=== PATIENT | male | born 1985 | race Caucasian/White ===

== ENCOUNTER 2019-11-21 17:52 | Emergency (ER) | payer OTHER, SELFPAY ==
[2019-11-21 18:03] VITALS: BP 144/94; PULSE 128; RESP 16; TEMP 36.7; O2SAT 94
[2019-11-21 18:08] LABS: Bilirubin Negative (Negative); Blood Large (Negative); Clarity Cloudy (Clear); Glucose Negative (Negative); Ketones Negative (Negative); Leukocyte Esterase Large (Negative); Nitrite Negative (Negative); Specific Gravity 1.025 (1.005-1.025); Urobilinogen 1 EU/dL (Up TO 0.2); pH 6.5 (5-8)
--- NOTE | 2019-11-21 18:15 | DI.CT_ITS ---
EXAM: CT ABDOMEN PELVIS WO CLINICAL HISTORY: Pain, hematuria. TECHNIQUE: Imaging Protocol: Axial computed tomography images with coronal and sagittal reformatted images were created and reviewed. COMPARISON: No exams were available for comparison FINDINGS: ABDOMEN: Lung Bases: There is a 2 mm noncalcified pulmonary nodule in the lateral aspect of the right lower lo be. Liver: Normal density. No measurable mass. Gallbladder and biliary tract: No radiodense calculus or dilation. Pancreas: Normal density, no abnormal calcifications or inflammatory process. Spleen: Normal. Kidneys: Normal size, contour and axis. No radiodense stones or obstructive uropathy. No masses seen. Adrenal glands: No masses seen. Lymph nodes: Within normal limits. Abdominal Aorta: Abdominal portion non-dilated. PELVIS: Bladder: There is apparent mild thickening of the wall of the urinary bladder. This may be due to un derdistention, inflammatory or infectious process cannot be excluded. Please correlate clinically. Bowel: No obstruction or bowel wall thickening. The appendix is normal in size without evidence of ad jacent mesenteric fat stranding or adjacent fluid collection. Peritoneal cavity: No ascites, collection or mesenteric inflammatory response. Reproductive organs: Within normal limits. Bones: Within normal limits. IMPRESSION: 1. No evidence of nephrolithiasis or obstructive uropathy. 2. Question of urinary bladder wall thickening. This may be due to underdistention. Inflammatory or infectious process cannot be excluded. Please correlate clinically. 3. 2 mm noncalcified pulmonary nodule in the right lower lobe. Follow-up as clinically appropriate. Please correlate with patient's past medical history. DATA REPOSITORY: All CT scans at this facility are submitted to the National Radiology Data Registry (NRDR) Dose Index Registry (DIR) with the [employer] ([employer]). RADIATION OPTIMIZATION: All CT scans at this facility use at least one of these dose optimization te chniques: automated exposure control; mA and/or kV adjustment per patient size (includes targeted exa ms where dose is matched to clinical indication); or iterative reconstruction.
[2019-11-21 18:18] LABS: RBC >50 HPF (0-2)
[2019-11-21 18:19] LABS: C & S Indicated? Yes
[2019-11-21 18:29] LABS: Abs Immature Grans 0.04 k/cumm (0.0-0.09); Absolute Basophil Count 0.03 k/cumm (0.0-0.2); Absolute Eosinophil Count 0.08 k/cumm (0.0-0.7); Absolute Lymphocyte Count 2.24 k/cumm (1.2-3.4); Absolute Monocyte Count 1.28 k/cumm (0.11-0.7); Absolute Neutrophil Count 13.01 k/cumm (1.2-6.7); Basophils % 0.2; Eosinophils % 0.5; HCT 44.6 % (40.0-50.0); HGB 15.6 g/dL (13.5-17.5); Immature Grans % 0.2 %; Lymphocytes % 13.4; Mean Corpuscular Hemoglobin 30.5 pg (27.0-33.0); Mean Corpuscular Volume 87.3 fL (80-95); Mean Platelet Volume 11.5 fL (8.0-11.0); Monocytes % 7.7; Platelet Count 202 x1000/uL (130-400); RBC 5.11 m/cumm (4.50-6.00); RBC Distribution Width 12.8 % (11.8-14.1); White Blood Cell Count 16.68 k/cumm (4.4-10.8)
[2019-11-21 18:48] LABS: ALT 37 U/L (16-63); AST 18 U/L (15-37); Albumin 4.4 g/dL (3.4-5.0); Alkaline Phosphatase 83 U/L (46-116); Anion Gap 11.1 mmol/L (3-11); BUN 11 mg/dL (7-18); Bilirubin, Total 0.8 mg/dL (0.2-1.0); CO2 26.9 mmol/L (21.0-32.0); CREATININE 1.01 mg/dL (0.70-1.30); Calcium 8.9 mg/dL (8.5-10.1); Chloride 102 mmol/L (98-107); Glucose 93 mg/dL (74-106); Potassium 3.8 mmol/L (3.5-5.1); Sodium 140 mmol/L (136-145); Total Protein 7.8 g/dL (6.4-8.2)
[2019-11-21 18:52] LABS: PTT Activated 25.5 sec (21.0-31.4); Prothrombin Time 10.4 sec (9.3-11.0)
--- NOTE | 2019-11-21 18:55 | W.ED.GENAD ---
Discharge Plan Disposition Patient Disposition: HOME Condition: Stable Discharge Details Chief Complaint: Urinary Clinical Impression: Hematuria, Cystitis Primary Care Provider: Ludin Blackwell ED Provider: Mike Roberts Home Meds and New Rx's Prescriptions: New nitrofurantoin monohyd/m-cryst [Macrobid] 100 mg capsule 100 mg PO BID Qty: 14 RF: 0 Discharge Instructions Instructions: Urinary Tract Infection in Men (ED), Hematuria (ED) Additional Instructions: Macrobid as directed. [id number] medications such as Tylenol and/or Motrin as directed for discomfort. Plenty fluids to avoid dehydration. Please watch for new or worsening symptoms and return to the ER for any concerns. I have given your name and number to the office of Dr. Cabrera, urologist. They should be reaching out to you on Saturday however if you do not hear from them I recommend contacting their office your cell for prompt outpatient reevaluation. Stand Alone Forms: Work Release Referrals: Christian Cabrera MD [ [facility] STAFF PHYSICIAN] - Medical Decision Making 33-year-old gentleman, otherwise healthy, presents with tachycardia, and pain that he describes that is inside his penis and now with hematuria today. Examination outside of his tachycardia is unremarkable. Abdomen, back, exam completely unremarkable. No lesions, erythema, discomfort, discharge. No clear indication for emergent ultrasound as suspicion for torsion, epididymitis, is so low. Will obtain routine laboratory values, give IV fluid, and obtain bladder scan. Bladder scan is less than 150, patient is able to urinate some, appears to be gross hematuria. White blood cell count of 16.68, urine protein greater than 300, urine blood large, greater than 50 red blood cells, white cells present but unable to get a number given the red cells. Will obtain CT without contrast for further evaluation of possible stone, pyelonephritis, mass, etc. Patient given 1 L of IV fluid, 1 g p.o. Tylenol, 30 IV Toradol. Patient upon reevaluation reports feeling significant improvement. Heart rate is now 92. No evidence of renal calculi or hydronephrosis. Bladder wall thickening may be due to cystitis or lack of distention Most likely diagnosis is that of hemorrhagic cystitis. He did have a Dong catheter placed on the . Patient appears well, nontoxic. We discussed his work-up, laboratory values, CTA in length. We discussed the importance of outpatient neurology follow-up, I will give him a referral to Dr. Cabrera and we will fax over his report this evening to Dr. Cabrera. Encouraged him to reach out on Saturday. Otherwise watch for new or worsening symptoms and return immediately to the ER. Medical Records Medical records reviewed: Yes I reviewed the patient's medical records. Imaging Data Radiologic Study: Imaging: CT Scan Radiologist's impression: Virtual radiology read as no evidence of renal calculi or hydronephrosis. Bladder wall thickening may be due to cystitis or lack of distention Lab Data Lab results reviewed: Yes I reviewed the patient's lab results. Lab results narrative: 11/21/19 18:00 Urine - Reflex from Ua Urine Culture - Pending Laboratory Tests Range/Units 11/21/19 11/21/19 11/21/19 18:00 18:15 18:15 WBC (4.4-10.8) k/cumm 16.68 H RBC (4.50-6.00) m/cumm 5.11 Hgb (13.5-17.5) g/dL 15.6 Hct (40.0-50.0) % 44.6 MCV (80-95) fL 87.3 MCH (27.0-33.0) pg 30.5 MCHC (32.0-36.0) g/dL 35.0 RDW (11.8-14.1) % 12.8 Plt Count (130-400) x1000/uL 202 MPV (8.0-11.0) fL 11.5 H Immature Gran % % 0.2 Neutrophils % 78.0 Lymphocytes % 13.4 Monocytes % 7.7 Eosinophils % 0.5 Basophils % 0.2 Absolute Neutrophils (1.2-6.7) k/cumm 13.01 H Absolute Lymphocytes (1.2-3.4) k/cumm 2.24 Absolute Monocytes (0.11-0.7) k/cumm 1.28 H Absolute Eosinophils (0.0-0.7) k/cumm 0.08 Absolute Basophils (0.0-0.2) k/cumm 0.03 PT (9.3-11.0) sec INR (0.9-1.1) APTT (21.0-31.4) sec Sodium (136-145) mmol/L 140 Potassium (3.5-5.1) mmol/L 3.8 Chloride (98-107) mmol/L 102 Carbon Dioxide (21.0-32.0) mmol/L 26.9 Anion Gap (3-11) mmol/L 11.1 H BUN (7-18) mg/dL 11 Creatinine (0.70-1.30) mg/dL 1.01 Estimated GFR/1.73 m2 (mL/min/1.73m2) >= 60.00 Glucose (74-106) mg/dL 93 Calcium (8.5-10.1) mg/dL 8.9 Total Bilirubin (0.2-1.0) mg/dL 0.8 AST (15-37) U/L 18 ALT (16-63) U/L 37 Alkaline Phosphatase (46-116) U/L 83 Total Protein (6.4-8.2) g/dL 7.8 Albumin (3.4-5.0) g/dL 4.4 Urine Color (Yellow) Red Urine Clarity (Clear) Cloudy Urine pH (5-8) 6.5 Ur Specific [place] (1.005-1.025) 1.025 Urine Protein (Negative) mg/dL >=300 H Urine Ketones (Negative) mg/dL Negative Urine Blood (Negative) Large H Urine Nitrite (Negative) Negative Urine Bilirubin (Negative) Negative Urine Urobilinogen (Up TO 0.2) EU/dL 1 Ur Leukocyte Esterase (Negative) Large Urine RBC (0-2) HPF >50 H Urine WBC (0-5) HPF Ur Epithelial Cells Not Applicable Urine Crystals Not Applicable Urine Bacteria Not Applicable Urine Mucus Not Applicable Ur Culture Indicated? Yes Urine Glucose (Negative) mg/dL Negative Range/Units 11/21/19 18:15 WBC (4.4-10.8) k/cumm RBC (4.50-6.00) m/cumm Hgb (13.5-17.5) g/dL Hct (40.0-50.0) % MCV (80-95) fL MCH (27.0-33.0) pg MCHC (32.0-36.0) g/dL RDW (11.8-14.1) % Plt Count (130-400) x1000/uL MPV (8.0-11.0) fL Immature Gran % % Neutrophils % Lymphocytes % Monocytes % Eosinophils % Basophils % Absolute Neutrophils (1.2-6.7) k/cumm Absolute Lymphocytes (1.2-3.4) k/cumm Absolute Monocytes (0.11-0.7) k/cumm Absolute Eosinophils (0.0-0.7) k/cumm Absolute Basophils (0.0-0.2) k/cumm PT (9.3-11.0) sec 10.4 INR (0.9-1.1) 1.0 APTT (21.0-31.4) sec 25.5 Sodium (136-145) mmol/L Potassium (3.5-5.1) mmol/L Chloride (98-107) mmol/L Carbon Dioxide (21.0-32.0) mmol/L Anion Gap (3-11) mmol/L BUN (7-18) mg/dL Creatinine (0.70-1.30) mg/dL Estimated GFR/1.73 m2 (mL/min/1.73m2) Glucose (74-106) mg/dL Calcium (8.5-10.1) mg/dL Total Bilirubin (0.2-1.0) mg/dL AST (15-37) U/L ALT (16-63) U/L Alkaline Phosphatase (46-116) U/L Total Protein (6.4-8.2) g/dL Albumin (3.4-5.0) g/dL Urine Color (Yellow) Urine Clarity (Clear) Urine pH (5-8) Ur Specific [place] (1.005-1.025) Urine Protein (Negative) mg/dL Urine Ketones (Negative) mg/dL Urine Blood (Negative) Urine Nitrite (Negative) Urine Bilirubin (Negative) Urine Urobilinogen (Up TO 0.2) EU/dL Ur Leukocyte Esterase (Negative) Urine RBC (0-2) HPF Urine WBC (0-5) HPF Ur Epithelial Cells Urine Crystals Urine Bacteria Urine Mucus Ur Culture Indicated? Urine Glucose (Negative) mg/dL HPI General Mode of arrival: ambulatory. Date/Time Provider Initiated Documentation: 11/21/19 17:58. Limitations to Documentation: no limitations. Information obtained by: patient. HPI Narrative: 33-year-old gentleman who reports mild penile pain that began yesterday, around 11:30 at night. This morning he noticed mild dysuria and subsequently noted blood in his urine. He reports that he is only able to urinate in small amounts as he is urinating clots of blood. He denies fever,, nausea, vomiting, abdominal pain, back pain. He reports that both of his testicles are aching but denies any sharp pain or worse pain either upon. Patient is , only sexually active with her, reports last intercourse several weeks ago, but did have foreplay last night that led to a normal ejaculation. Denies any STD exposure or history of STD. Of note, he had a left knee surgery last month on the , and meniscus repair. Related Data Home Medications Medication Instructions Recorded Confirmed nitrofurantoin monohyd/m-cryst 100 mg PO BID #14 cap 11/21/19 [Macrobid] Previous Rx's Medication Instructions Recorded nitrofurantoin monohyd/m-cryst 100 mg PO BID #14 cap 11/21/19 [Macrobid] Allergies Allergy/AdvReac Type Severity Reaction Status Date / Time No Known Allergies Allergy Unverified 09/19/17 12:48 General Stated Complaint: Urinary SKYLAR: 3 Review of Systems Constitutional Constitutional: Denies chills, Denies fatigue, Denies fever(s), Denies headache(s) and Denies weakness ENT Ears, Nose, Mouth, and Throat: Denies headache(s) Cardiovascular Cardiovascular: Denies chest pain and Denies dyspnea Respiratory Respiratory: Denies cough and Denies dyspnea Gastrointestinal Gastrointestinal: Denies abdominal pain, Denies nausea and Denies vomiting Genitourinary Genitourinary: Denies hematospermia, Reports hematuria, Reports difficulty urinating, Denies difficulty with ejaculations, Denies erectile dysfunction, Denies genital lesions, Reports dysuria, Denies flank pain, Denies painful ejaculations, Denies penile discharge, Denies testicular mass, Reports testicular pain, Reports urinary frequency, Reports urinary hesitancy, Denies urinary incontinence and Reports urinary urgency Musculoskeletal Musculoskeletal: Denies back pain, Denies numbness and Denies tingling Integumentary/Breasts Skin/Breast: Denies rash Neurologic Neurologic: Denies headache(s), Denies numbness, Denies tingling and Denies weakness Endocrine Endocrine: Denies fatigue [facility] Social History Smoking/Tobacco Use Status: Never Drug use: Never Do you feel safe in your relationship?: Yes Exam Const General: cooperative, healthy appearing, comfortable and no acute distress Orientation: alert and awake HENMT Head: normal to inspection, normocephalic and atraumatic Mouth: moist mucous membranes Eyes Conjunctivae: conjunctivae normal Neck Neck: normal visual inspection, trachea midline and supple Resp Effort & Inspection: normal respiratory effort and able to speak in complete sentences Auscultation: clear to auscultation bilaterally Cardio Rate: tachycardic (Tachycardia in the 120s) GI Inspection: normal to inspection Palpation: soft, not firm, no guarding, not rigid and nontender Auscultation: normal bowel sounds Male General Exam: Yes normal external exam Penis: normal penis Meatus: meatus normal Scrotum: scrotum normal Testes: normal Back/Spine/Pelvis Back: No back tenderness Skin General skin exam: no rashes or lesions noted Neuro General: alert, awake, moves all extremities and no focal motor deficits Sensory Exam: no sensory deficits noted Extrem General: normal to inspection Left lower extremity: normal to inspection (Appears to be a well-healing surgery, no signs of infection) Psych Appearance: grossly normal Mental Status: mental status grossly normal Course Vital Signs Vital signs: Vital Signs Temperature 36.7 C 11/21/19 18:03 Pulse 128 H 11/21/19 18:03 Respiratory Rate 16 11/21/19 18:03 Blood Pressure 144/94 H 11/21/19 18:03 Pulse Oximetry 94 L 11/21/19 18:03 Temperature 36.7 C 11/21/19 18:03 Temperature Source Temporal Artery Scan 11/21/19 18:03 Pulse 128 H 11/21/19 18:03 Respiratory Rate 16 11/21/19 18:03 Respiratory Effort 11/21/19 18:16 Blood Pressure 144/94 H 11/21/19 18:03 Blood Pressure Position Sitting 11/21/19 18:03 Pulse Oximetry 94 L 11/21/19 18:03 Oxygen Delivery Method Room Air 11/21/19 18:03 Oxygen Flow Rate 0 11/21/19 18:03 Pain Level 6 11/21/19 18:03 Lab/Test Results Lab/Test Results: 11/21/19 18:00 Urine - Reflex from Ua Urine Culture - Pending Laboratory Tests Range/Units 11/21/19 11/21/19 11/21/19 18:00 18:15 18:15 WBC (4.4-10.8) k/cumm 16.68 H RBC (4.50-6.00) m/cumm 5.11 Hgb (13.5-17.5) g/dL 15.6 Hct (40.0-50.0) % 44.6 MCV (80-95) fL 87.3 MCH (27.0-33.0) pg 30.5 MCHC (32.0-36.0) g/dL 35.0 RDW (11.8-14.1) % 12.8 Plt Count (130-400) x1000/uL 202 MPV (8.0-11.0) fL 11.5 H Immature Gran % % 0.2 Neutrophils % 78.0 Lymphocytes % 13.4 Monocytes % 7.7 Eosinophils % 0.5 Basophils % 0.2 Absolute Neutrophils (1.2-6.7) k/cumm 13.01 H Absolute Lymphocytes (1.2-3.4) k/cumm 2.24 Absolute Monocytes (0.11-0.7) k/cumm 1.28 H Absolute Eosinophils (0.0-0.7) k/cumm 0.08 Absolute Basophils (0.0-0.2) k/cumm 0.03 PT (9.3-11.0) sec INR (0.9-1.1) APTT (21.0-31.4) sec Sodium (136-145) mmol/L 140 Potassium (3.5-5.1) mmol/L 3.8 Chloride (98-107) mmol/L 102 Carbon Dioxide (21.0-32.0) mmol/L 26.9 Anion Gap (3-11) mmol/L 11.1 H BUN (7-18) mg/dL 11 Creatinine (0.70-1.30) mg/dL 1.01 Estimated GFR/1.73 m2 (mL/min/1.73m2) >= 60.00 Glucose (74-106) mg/dL 93 Calcium (8.5-10.1) mg/dL 8.9 Total Bilirubin (0.2-1.0) mg/dL 0.8 AST (15-37) U/L 18 ALT (16-63) U/L 37 Alkaline Phosphatase (46-116) U/L 83 Total Protein (6.4-8.2) g/dL 7.8 Albumin (3.4-5.0) g/dL 4.4 Urine Color (Yellow) Red Urine Clarity (Clear) Cloudy Urine pH (5-8) 6.5 Ur Specific [place] (1.005-1.025) 1.025 Urine Protein (Negative) mg/dL >=300 H Urine Ketones (Negative) mg/dL Negative Urine Blood (Negative) Large H Urine Nitrite (Negative) Negative Urine Bilirubin (Negative) Negative Urine Urobilinogen (Up TO 0.2) EU/dL 1 Ur Leukocyte Esterase (Negative) Large Urine RBC (0-2) HPF >50 H Urine WBC (0-5) HPF Ur Epithelial Cells Not Applicable Urine Crystals Not Applicable Urine Bacteria Not Applicable Urine Mucus Not Applicable Ur Culture Indicated? Yes Urine Glucose (Negative) mg/dL Negative Range/Units 11/21/19 18:15 WBC (4.4-10.8) k/cumm RBC (4.50-6.00) m/cumm Hgb (13.5-17.5) g/dL Hct (40.0-50.0) % MCV (80-95) fL MCH (27.0-33.0) pg MCHC (32.0-36.0) g/dL RDW (11.8-14.1) % Plt Count (130-400) x1000/uL MPV (8.0-11.0) fL Immature Gran % % Neutrophils % Lymphocytes % Monocytes % Eosinophils % Basophils % Absolute Neutrophils (1.2-6.7) k/cumm Absolute Lymphocytes (1.2-3.4) k/cumm Absolute Monocytes (0.11-0.7) k/cumm Absolute Eosinophils (0.0-0.7) k/cumm Absolute Basophils (0.0-0.2) k/cumm PT (9.3-11.0) sec 10.4 INR (0.9-1.1) 1.0 APTT (21.0-31.4) sec 25.5 Sodium (136-145) mmol/L Potassium (3.5-5.1) mmol/L Chloride (98-107) mmol/L Carbon Dioxide (21.0-32.0) mmol/L Anion Gap (3-11) mmol/L BUN (7-18) mg/dL Creatinine (0.70-1.30) mg/dL Estimated GFR/1.73 m2 (mL/min/1.73m2) Glucose (74-106) mg/dL Calcium (8.5-10.1) mg/dL Total Bilirubin (0.2-1.0) mg/dL AST (15-37) U/L ALT (16-63) U/L Alkaline Phosphatase (46-116) U/L Total Protein (6.4-8.2) g/dL Albumin (3.4-5.0) g/dL Urine Color (Yellow) Urine Clarity (Clear) Urine pH (5-8) Ur Specific [place] (1.005-1.025) Urine Protein (Negative) mg/dL Urine Ketones (Negative) mg/dL Urine Blood (Negative) Urine Nitrite (Negative) Urine Bilirubin (Negative) Urine Urobilinogen (Up TO 0.2) EU/dL Ur Leukocyte Esterase (Negative) Urine RBC (0-2) HPF Urine WBC (0-5) HPF Ur Epithelial Cells Urine Crystals Urine Bacteria Urine Mucus Ur Culture Indicated? Urine Glucose (Negative) mg/dL
[2019-11-21] MEDS: Normal Saline 1,000 ML 1000 ML IV (18:59)
[2019-11-21] MEDS: Acetaminophen 500 MG TAB (19:12)
--- NOTE | 2019-11-21 19:31 | DI.VRAD_ITS ---
PROCEDURE INFORMATION: Exam: CT Abdomen And Pelvis Without Contrast Exam date and time: 11/21/2019 7:01 PM Age: 33 years old Clinical indication: Other: Pain, hematuria TECHNIQUE: Imaging protocol: Computed tomography of the abdomen and pelvis without contrast. COMPARISON: No relevant prior studies available. FINDINGS: Lungs: There is a 2 mm nodule in the right lower lobe, series 2, image 12. Liver: Unremarkable. No mass. Gallbladder and bile ducts: No calcified stones. No ductal dilation. Pancreas: Unremarkable. No ductal dilation. Spleen: Unremarkable. No splenomegaly. Adrenals: Unremarkable. No mass. Kidneys and ureters: No hydronephrosis. No renal or ureteral calculi. Stomach and bowel: No bowel obstruction or focal inflammatory changes. Appendix: No evidence of appendicitis. Intraperitoneal space: No free air or free fluid. Vasculature: No aortic aneurysm. Lymph nodes: No pathologically enlarged lymph nodes. Bladder: There is mild diffuse bladder wall thickening. Reproductive: Unremarkable as visualized. Bones/joints: The small bone island in the left femoral head. No acute bony abnormality. Soft tissues: Unremarkable. Other findings: There is motion artifact in the upper abdomen. IMPRESSION: 1. No evidence of renal calculi or hydronephrosis. 2. Bladder wall thickening may be due to cystitis or lack of distention. 3. Tiny right lower lobe nodule. Dictated and Authenticated by: Mauro Goff MD. Ordering:SHANA Mckeon MD
[2019-11-21 19:54] VITALS: BP 127/80; PULSE 86; RESP 16; TEMP 36.7; O2SAT 98
[2019-11-21] MEDS: Ketorolac 30 MG/ML VIAL IVP (20:02)
[2019-11-21] MEDS: MacroBID 100 MG CAP PO (20:02)
--- NOTE | 2019-11-22 07:05 | NUR.NOTE ---
Nursing Note: [facility] faxed for follow up. Zahraa Amezquita.
== END 2019-11-21 20:15 | disposition home or self-care (01) ==
PROVIDERS: Emergency Provider Physician Assistant; PCP Internal Medicine
DX: N30.01 Acute cystitis with hematuria (principal); B96.20 Unspecified Escherichia coli [E. coli] as the cause of diseases classified elsewhere; Y83.8 Other surgical procedures as the cause of abnormal reaction of the patient, or of later complication, without mention of misadventure at the time of the procedure
CPT/HCPCS: 36415; 80053; 87077; 96361; 96374; 99285; 74176; 81003; 81015; 85025; 85610; 85730; 87086; 87186; 99284; J1885

== ENCOUNTER → 2019-12-01 09:04 | Outpatient (BNVA) | payer OTHER, SELFPAY | PROVIDERS: PCP Internal Medicine; Referring Provider Internal Medicine; Visit Provider Urology | DX: R31.9 Hematuria, unspecified (principal); Z87.440 Personal history of urinary (tract) infections | CPT/HCPCS: 81003; 99214; 99243 ==

== ENCOUNTER 2023-03-25 09:53 | Emergency (ER) | payer OTHER, SELFPAY ==
[2023-03-25 10:00] VITALS: BP 156/99; PULSE 84; RESP 20; TEMP 37; O2SAT 96
--- NOTE | 2023-03-25 10:45 | DI.RAD_ITS ---
Exam(s) XR FOOT LT COMPLETE EXAM: XR FOOT LT COMPLETE CLINICAL HISTORY: foot/calderón caught on ladder rungs, fell backward. TECHNIQUE: 2D digital imaging was performed. COMPARISON: No exams were available for comparison FINDINGS: 3 views No evidence of acute fracture or diastasis of the Lisfranc joint. Bone density normal. No osseous l esions. No radiopaque foreign body. Incidentally noted is some irregularity of the head of the 5th metatarsal, probably degenerative at t he MTP joint at this level. IMPRESSION: No acute fractures evident in the foot. No radiopaque foreign body. DATA REPOSITORY: RADIATION DOSE DELIVERED:
--- NOTE | 2023-03-25 10:45 | DI.RAD_ITS ---
Exam(s) XR TIB/FIB LT EXAM: XR TIB/FIB LT CLINICAL HISTORY: fall back from ladder, foot/calderón caught in rungs. TECHNIQUE: 2D digital imaging was performed. COMPARISON: No exams were available for comparison FINDINGS: Two views: No evidence fracture of the mid and upper tibia-fibula. Please note that the lower most aspect of th yamil bones are not included in the field of view. 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 IMPRESSION: Findings as above but no acute fracture lines evident in the tibia and fibula, realizing that the low er most aspects of these bones are not included in the field of view of this study. Recommend furthe r images to include the most aspect of these bones. DATA REPOSITORY: RADIATION DOSE DELIVERED:
--- NOTE | 2023-03-25 10:53 | DI.RAD_ITS ---
Exam(s) XR ANKLE LT COMPLETE EXAM: XR ANKLE LT COMPLETE CLINICAL HISTORY: fall back from ladder, leg caught in rungs. TECHNIQUE: 2D digital imaging was performed. COMPARISON: No exams were available for comparison FINDINGS: 3 views No evidence of acute fracture nor widening of the ankle mortise. Talar dome unremarkable. There is an osteo chondroma versus is inter osseous ligament calcification seen off the lateral aspect of the distal 3rd of the tibia. No soft tissue swelling around the malleoli. No obvious degenerative changes in the tibiotalar and s ubtalar joints. IMPRESSION: No evidence of acute ankle fracture. Other findings as above. DATA REPOSITORY: RADIATION DOSE DELIVERED:
[2023-03-25] MEDS: Acetaminophen 500 MG TAB 1000 MG PO (11:05)
[2023-03-25] MEDS: Ketorolac 15 MG/ML VIAL IM (11:06)
--- NOTE | 2023-03-25 11:36 | ED.GENADUL_ITS ---
Discharge Plan Disposition Patient Disposition: Home Condition: Good Discharge Details Clinical Impression: Leg pain, left Primary Care Provider: Ludin Blackwell ED Provider: Debbie Rodriguez Home Meds and New Rx's Prescriptions: No Action acetaminophen [Tylenol] 325 mg capsule 325 mg PO ONCE PRN Discharge Instructions Instructions: Hematoma (ED) Additional Instructions: Use Tylenol, ice, and rest for your pain. Call your primary care doctor today to schedule an appointment to follow up on your visit here. Return to the emergency department for severe pain, weakness or numbness in your leg or foot, or if you have any other concerns. Medical Decision Making 37yo M not on AC presenting after fall; fell backwards from ladder striking the back of his head and catching his left leg in the rungs as he fell. Reports left calf and foot pain, otherwise denies pain and is in his usual state of health. Vital signs and physical exam reassuring, no neurological complaints, compartments soft. Would not pursue imaging (i.e. CT) for head injury. Clinically no compartment syndrome. Low suspcion for fracture, evaluate with plain films of tibfib/ankle/foot which are negative for fracture. Pain control with tylenol and IM toradol. On reassessment able to ambulate steadily independently; declined crutches or brace. Discharged home; discharge instructions including return precautions were reviewed with patient who verablized understanding. All questions were answered and they are in full agreement with the plan. Imaging Data Radiologic Study: Radiologist's impression: Tib/Fib IMPRESSION: Findings as above but no acute fracture lines evident in the tibia and fibula, realizing that the lower most aspects of these bones are not included in the field of view of this study. Recommend further images to include the most aspect of these bones. Ankle: IMPRESSION: No evidence of acute ankle fracture. Other findings as above Foot: IMPRESSION: No acute fractures evident in the foot. No radiopaque foreign body. HPI General Date/Time Provider Initiated Documentation: 03/25/23 10:22 . Limitations to Documentation: no limitations . Information obtained by: patient . HPI Narrative: 37yo M presenting after fall. Was on a ladder trimming tree branches, branch fell and struck him, he fell backwards. Left leg caught in between rungs as he fell; struck the back of his head on a metal chair. Did not lose consciousness. No headache/N/V. Currently has left calf and foot pain, otherwise denies pain. He is otherwise in his usual state of health. Related Data Home Medications Medication Instructions Recorded Confirmed acetaminophen 325 mg capsule 325 mg PO ONCE PRN 12/01/19 03/25/23 (Tylenol) Allergies Allergy/AdvReac Type Severity Reaction Status Date / Time No Known Allergies Allergy Unverified 03/25/23 10:04 General Stated Complaint: Fall/Non TraumaCriteria SKYLAR: 3 Review of Systems Narrative: see HPI PFSH All Active Problems (Updated 03/25/23 @ 11:55 by Debbie Rodriguez MD) Leg pain, left (Acute) URI, acute (Acute) Bronchitis (Acute) Social History Smoking/Tobacco Use Status: Current every day Tobacco Type: e-cigarettes Smoking risk assessment performed?: Yes Alcohol Intake: current Alcohol Intake frequency: 0-2 drinks per day Drug use: Never Substance use type: does not use Do you feel safe in your relationship?: Yes Exam Narrative Exam Narrative: General: Alert, well appearing, well nourished, in no acute distress. Head: Normocephalic, atraumatic Neck: Trachea midline, Neck supple. ENT: MMM. No oropharygeal lesions or exudate. Cardiac: RRR, no murmurs appreciated Resp: No respiratory distress. CTAB. Abd: Soft, non-distended, nontender : No suprapubic tenderness. No CVA tenderness. Extremities: LLE: No thigh tenderness. Knee with full pain free ROM, no bony tenderness, no effusion. Left posterior calf with hematoma, TTP, compartments soft. Ankle with full pain free ROM, no bony tenderness, no effusion. Echymosis and abrasion to left midfoot, TTP. Distal sensation intact, DP pulse present. Neurologic: GCS 15. Moves all extremities freely against gravity. Course Vital Signs Vital signs: Vital Signs Temperature 37 C 03/25/23 10:00 Pulse 84 03/25/23 10:00 Respiratory Rate 20 03/25/23 10:00 Blood Pressure 156/99 H 03/25/23 10:00 Pulse Oximetry 96 03/25/23 10:00 Temperature 37 C 03/25/23 10:00 Temperature Source Oral 03/25/23 10:00 Pulse 84 03/25/23 10:00 Respiratory Rate 20 03/25/23 10:00 Respiratory Effort Normal 03/25/23 10:03 Blood Pressure 156/99 H 03/25/23 10:00 Blood Pressure Position Sitting 03/25/23 10:00 Pulse Oximetry 96 03/25/23 10:00 Oxygen Delivery Method Room Air 03/25/23 10:00 Oxygen Flow Rate 0 03/25/23 10:00 PAWSS Have you Been Recently Intoxicated or Drunk Within the Last 30 days?: Yes Have you Ever Experienced Previous Episodes of Alcohol Withdrawal?: No Have you ever Experienced Withdrawal Seizures?: No Have you ever Experienced Delirium Tremens(DT)s?: No Have you ever undergone Alcohol Rehabilitation Treatment (i.e, inpt ot outpatient treatment programs)?: No Have you ever Experienced Blackouts?: No Have you ever Combined Alcohol with other Downers within the last 90 days?: No Have you ever Combined Alcohol with any other Substance of Abuse during the last 90 days?: No Positive Blood Alcohol level on Presentation? [PCS.BAL]: No Evidence of Increased Autonomic Activity (i.e. HR>120, tremor, sweating, agitation, nausea)?: No Result: 1
== END 2023-03-25 12:05 | disposition home or self-care (01) ==
PROVIDERS: Emergency Provider Student in an Organized Health Care Education/Training Program; PCP Internal Medicine
DX: S89.92XA Unspecified injury of left lower leg, initial encounter (principal); D16.22 Benign neoplasm of long bones of left lower limb; F17.290 Nicotine dependence, other tobacco product, uncomplicated; W11.XXXA Fall on and from ladder, initial encounter; Y92.017 Garden or yard in single-family (private) house as the place of occurrence of the external cause; Y93.H2 Activity, gardening and landscaping; Y99.9 Unspecified external cause status
CPT/HCPCS: 73590; 73610; 73630; J1885

== ENCOUNTER → 2023-06-17 02:11 | Outpatient (CLI) | payer OTHER, SELFPAY ==
--- NOTE | 2023-06-17 | DI.RAD_ITS ---
Exam(s) XR SHOULDER LT COMPLETE 2+V EXAM: XR SHOULDER LT COMPLETE 2+V CLINICAL HISTORY: BONE LESION,M89.9, LT PROXIMAL HUMERAL HEAD,? ENCHONDROMA. TECHNIQUE: 2D digital imaging was performed. COMPARISON: MR MR SHOULDER LEFT W CONTRAST from 11/22/2022 FINDINGS: No evidence of fracture or dislocation or abnormal soft tissue calcifications. Subacromial space not diminished. There are no degenerative changes in the glenohumeral and AC joints. Subtle bone lesion in the humeral head corresponds to the finding on the mammogram is most probably a n enchondroma. 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 Appropriate follow-up recommended. DATA REPOSITORY: RADIATION DOSE DELIVERED:
== END ==
PROVIDERS: PCP Internal Medicine; Visit Provider Physician Assistant
DX: M89.9 Disorder of bone, unspecified (principal)
CPT/HCPCS: 73030